=== PATIENT | female | born 1995 | race Caucasian/White ===

== ENCOUNTER 2023-06-04 19:54 | Emergency (ER) | payer BC ==
[2023-06-04 20:09] VITALS: BP 154/90; PULSE 92; RESP 16; TEMP 98.5; BMI 28.3
== END 2023-06-04 21:14 | disposition home or self-care (01) ==
LOC: FER 19:54
DX: R07.89 Other chest pain (principal)
CPT/HCPCS: 36415; 82550; 84484; 93005; 99284-25